=== PATIENT | female | born 1970 | race Caucasian/White ===

== ENCOUNTER 2018-01-19 15:13 | Emergency (ER) | payer OTHER ==
[~2018-01-19] VITALS: Ht 175.3 cm; Wt 83.9 kg
[~2018-01-19 15:13] MED LIST: IBUP200C14; LEVO50TA66; MISCTAB
[2018-01-19 15:18] VITALS: BP 126/81
== END 2018-01-19 22:00 | disposition left against medical advice (07) ==
LOC: EDBD 15:13 → ER 15:13
DX: R55 Syncope and collapse (principal); R51 Headache; Z53.21 Procedure and treatment not carried out due to patient leaving prior to being seen by health care provider
CPT/HCPCS: 93005

== ENCOUNTER 2021-11-15 10:30 | Emergency (ER) | payer OTHER ==
[~2021-11-15] VITALS: Ht 182.9 cm; Wt 88.9 kg
[2021-11-15 14:54] VITALS: BP 107/83
[2021-11-15] MEDS: methylPREDNISolone SOD SUCC 125 MG/2 ML VL IM ONE (16:32)
== END 2021-11-15 16:36 | disposition home or self-care (01) ==
LOC: ER 10:30
DX: R13.10 Dysphagia, unspecified (principal); Z90.49 Acquired absence of other specified parts of digestive tract; Z90.89 Acquired absence of other organs; Z90.710 Acquired absence of both cervix and uterus
CPT/HCPCS: 70490; 96372; 99284; J2930